=== PATIENT | female | born 2000 | race Asian ===

== ENCOUNTER 2022-12-30 23:52 | Emergency (ER) | payer OTHER ==
[~2022-12-30] VITALS: Ht 170.2 cm; Wt 115.7 kg
[2022-12-31 00:20] VITALS: BP 113/65; TEMP 97.8
== END 2022-12-31 02:00 | disposition home or self-care (01) ==
LOC: ED 23:52
DX: R05.9 Cough, unspecified (principal); R06.02 Shortness of breath; T59.91XA Toxic effect of unspecified gases, fumes and vapors, accidental (unintentional), initial encounter
CPT/HCPCS: 99282